=== PATIENT | female | born 1960 | race Caucasian/White ===

== ENCOUNTER 2022-11-07 05:37 | Inpatient (IN) | payer MEDICARE, OTHER ==
[~2022-11-07] VITALS: Ht 157.5 cm; Wt 55.3 kg
[2022-11-07] MEDS ORDERED: MAG HYDROX/AL HYDROX/SIMETH 30 ML UDC PO PRN (10:30)
[2022-11-07] MEDS ORDERED: ACETAMINOPHEN 325 MG TABLET PO PRN (10:30)
[2022-11-07] MEDS ORDERED: OXYC-133 PO (10:54)
[2022-11-07] MEDS ORDERED: ATOR10TA PO (10:54)
[2022-11-07] MEDS ORDERED: QUET100T PO (10:54)
[2022-11-07] MEDS ORDERED: IBUP-1957 PO (10:54)
[2022-11-07] MEDS ORDERED: BACL10TA PO (10:54)
[2022-11-07] MEDS ORDERED: DULO30CA2 PO (10:54)
[2022-11-07] MEDS ORDERED: TIZA4TAB5 PO (10:54)
[2022-11-07] MEDS ORDERED: ACYC400T19 PO (10:54)
[2022-11-07] MEDS ORDERED: FLUT16SP16 BNOSTRILS (10:54)
[2022-11-07] MEDS ORDERED: GABA600T12 PO (10:54)
[2022-11-07] MEDS ORDERED: BACLOFEN (10 MG) 10 MG TABLET PO PRN (12:30)
[2022-11-07] MEDS ORDERED: oxyCODONE/APAP (5/325 MG) 1 UDTAB TABLET PO PRN (12:30)
[2022-11-07] MEDS ORDERED: IBUPROFEN 800 MG TABLET PO PRN (12:30)
[2022-11-07] MEDS: FLUTICASONE PROPIONATE 16 GM BOTTLE NS SCH (13:00)
[2022-11-07] MEDS: TIZANIDINE HCL 4 MG TABLET PO SCH (13:30)
[2022-11-07 16:00] VITALS: BP 140/83; TEMP 98.1; O2SAT 96
[2022-11-07] MEDS: ACYCLOVIR 800 MG TABLET PO SCH (16:13)
[2022-11-07] MEDS: LORAZEPAM 0.5 MG TABLET PO PRN ×2 (16:13→23:10)
[2022-11-07] MEDS: IBUPROFEN 400 MG TABLET PO PRN (17:04)
[2022-11-07] MEDS: HYDROCODONE/APAP 10/325MG TABLET PO PRN (19:58)
[2022-11-07 20:38] VITALS: BP 138/91; TEMP 98.4; O2SAT 100
[2022-11-07] MEDS: ATORVASTATIN 10 MG TABLET PO SCH (21:34)
[2022-11-07] MEDS: ZOLPIDEM TARTRATE 5 MG TABLET PO PRN (21:34)
[2022-11-07] MEDS: MAGNESIUM HYDROXIDE 30 ML UDC PO PRN (21:41)
[2022-11-08] MEDS: IBUPROFEN 400 MG TABLET PO PRN ×2 (01:36→12:26)
[2022-11-08 06:56] LABS: ALBUMIN 3.9 g/dL (3.4-5.0); BILIRUBIN,TOTAL 0.6 mg/dL (0.2-1.0); CALCIUM, SERUM 9.4 mg/dL (8.5-10.1); CREATININE 0.7 mg/dL (0.6-1.3); POTASSIUM 4.3 mmol/L (3.5-5.1); TOTAL PROTEIN, SERUM 7.2 g/dL (6.4-8.2)
[2022-11-08 08:00] VITALS: BP 142/90; TEMP 97.8; O2SAT 100
[2022-11-08] MEDS: TIZANIDINE HCL 4 MG TABLET PO SCH (08:33)
[2022-11-08] MEDS: ACYCLOVIR 800 MG TABLET PO SCH ×2 (08:33→16:27)
[2022-11-08] MEDS: MAGNESIUM HYDROXIDE 30 ML UDC PO PRN (08:33)
[2022-11-08] MEDS: HYDROCODONE/APAP 10/325MG TABLET PO PRN ×3 (08:33→22:01)
[2022-11-08] MEDS: FLUTICASONE PROPIONATE 16 GM BOTTLE NS SCH (11:04)
[2022-11-08] MEDS: DULOXETINE HCL 30 MG CAPSULE.DR PO SCH (12:25)
[2022-11-08 14:41] LABS: BILIRUBIN,URINE NEGATIVE (NEGATIVE); COLOR,URINE YELLOW (YELLOW); LEUKOCYTE ESTERASE ,URINE NEGATIVE (NEGATIVE); NITRITE, URINE NEGATIVE (NEGATIVE); PROTEIN,URINE NEGATIVE (NEGATIVE); UGLUCOSE NEGATIVE (NEGATIVE); UROBILINOGEN,URINE 0.2 EU/dL (0.2)
[2022-11-08 15:01] LABS: BACTERIA,URINE Rare /HPF (None Seen); RBC,URINE NONE SEEN /HPF (0-2); SQUAMOUS EPITHELIAL CELL,UR Moderate /HPF (None Seen); WBC,URINE 0-2 /HPF (0-3)
[2022-11-08 16:00] VITALS: BP 155/94; TEMP 98.1; O2SAT 100
[2022-11-08] MEDS: LORAZEPAM 0.5 MG TABLET PO PRN ×2 (16:26→22:49)
[2022-11-08 20:21] VITALS: BP 153/92; TEMP 98.5; O2SAT 95
[2022-11-08] MEDS: ATORVASTATIN 10 MG TABLET PO SCH (21:28)
[2022-11-08] MEDS: ZOLPIDEM TARTRATE 5 MG TABLET PO PRN (21:29)
[2022-11-08] MEDS ORDERED: QUETIAPINE FUMARATE 100 MG TABLET PO SCH (22:00)
[2022-11-09] MEDS: IBUPROFEN 400 MG TABLET PO PRN (02:51)
[2022-11-09 08:00] VITALS: BP 141/92; TEMP 97.7; O2SAT 100
[2022-11-09] MEDS: FLUTICASONE PROPIONATE 16 GM BOTTLE NS SCH (08:22)
[2022-11-09] MEDS: TIZANIDINE HCL 4 MG TABLET PO SCH (08:23)
[2022-11-09] MEDS: ACYCLOVIR 800 MG TABLET PO SCH (08:23)
[2022-11-09] MEDS: DULOXETINE HCL 30 MG CAPSULE.DR PO SCH (08:23)
[2022-11-09] MEDS: HYDROCODONE/APAP 10/325MG TABLET PO PRN (08:30)
[2022-11-09] MEDS: LORAZEPAM 0.5 MG TABLET PO PRN (10:25)
== END 2022-11-09 13:01 | disposition left against medical advice (07) | DRG 885 ==
LOC: GPS 10:06
PROVIDERS: ADMIT Psychiatry & Neurology Psychiatry; ATTEND Nurse Practitioner Acute Care
DX: F31.9 Bipolar disorder, unspecified (principal); F11.20 Opioid dependence, uncomplicated; G92.9 Unspecified toxic encephalopathy; E87.1 Hypo-osmolality and hyponatremia; F29 Unspecified psychosis not due to a substance or known physiological condition; F41.9 Anxiety disorder, unspecified; F12.20 Cannabis dependence, uncomplicated; F43.21 Adjustment disorder with depressed mood; G89.4 Chronic pain syndrome; E78.5 Hyperlipidemia, unspecified; F17.210 Nicotine dependence, cigarettes, uncomplicated; Z82.49 Family history of ischemic heart disease and other diseases of the circulatory system
CPT/HCPCS: 36415; 80048-TC; 80053-TC; 80061-TC; 81001